=== PATIENT | male | born 1955 | race Caucasian/White ===

== ENCOUNTER → 2018-02-04 | Outpatient (CLI) | payer OTHER ==
[~2018-02-04] MED LIST: ASPI81 PO; BOSW5TAB PO; CELE200 PO; CENTCHW4 CHEW; CHONDROITIN PO; ECASA81 PO; FAMO1TAB37 PO; HYDR-3580 PO; SAWPOW PO; SIMV20TA PO; TAB-TAB PO; VITA100T5 PO; ZOCO40TA PO
[2018-02-04 12:20] LABS: HEMATOCRIT 43.3 % (39.0-51.0); HEMOGLOBIN 14.7 GM/DL (13.0-17.0); MEAN CELL VOLUME 91.4 FL (80.0-100.0); MEAN PLATELET VOLUME 8.5 FL (7.0-11.0); PLATELET COUNT 232 TH/MM3 (150-450); RED BLOOD COUNT 4.74 MIL/MM3 (4.50-5.90); RED CELL DISTRIBUTION WIDTH 13.1 % (11.6-17.2); WHITE BLOOD COUNT 4.9 TH/MM3 (4.0-11.0)
[2018-02-04 12:29] LABS: PROTHROMBIN TIME - PATIENT 10.4 SEC (9.8-11.6)
[2018-02-04 12:30] LABS: BILIRUBIN, URINE NEG (NEG); BLOOD, URINE NEG (NEG); GLUCOSE,URINE NEG (NEG); KETONE, URINE NEG (NEG); MUCUS URINE FEW /lpf (OCC); NITRITE,URINE NEG (NEG); URINE COLOR YELLOW (YELLW/STRAW); URINE LEUKOCYTE ESTERASE NEG (NEG)
[2018-02-04 12:46] LABS: BICARBONATE 28.7 MEQ/L (21.0-32.0); CALCIUM 9.3 MG/DL (8.5-10.1); CREATININE 0.98 MG/DL (0.60-1.30)
--- NOTE | 2018-02-04 23:44 | EKG ---
Date Performed: 02/04/2018 Time Performed: 11:56:19 PTAGE: 62 years EKG: SINUS BRADYCARDIA MINIMAL ST DEPRESSION BORDERLINE ECG Compared to PREVIOUS TRACING , rate has decreased and non-specific ST changes DOCTOR: Fredy Aceves Interpretating Date/Time 02/04/2018 23:43:27
== END ==
LOC: CPRE 11:34
PROVIDERS: ATTEND Orthopaedic Surgery
DX: Z01.812 Encounter for preprocedural laboratory examination (principal); Z01.810 Encounter for preprocedural cardiovascular examination; M17.12 Unilateral primary osteoarthritis, left knee; M79.609 Pain in unspecified limb; R00.1 Bradycardia, unspecified
CPT/HCPCS: 36415; 80048; 81001; 85027; 85610; 85730; 93005

== ENCOUNTER 2018-02-15 05:19 | Inpatient (IN) | payer MEDICARE ==
[~2018-02-15] VITALS: Ht 188 cm; Wt 98.5 kg
[~2018-02-15 05:19] MED LIST changes: -ASPI81 PO; -CELE200 PO; -CHONDROITIN PO; -ECASA81 PO; -HYDR-3580 PO; -SAWPOW PO; -TAB-TAB PO; -VITA100T5 PO; -ZOCO40TA PO
[2018-02-15] MEDS ORDERED: ceFAZolin 2 GM PREMIX 50 ML IV SCH (05:45)
[2018-02-15] MEDS ORDERED: METOPROLOL TARTRATE 25 MG TAB PO PRN (05:45)
[2018-02-15] MEDS ORDERED: SODIUM CHLORID 0.9% 500 ML IV PRN (05:45)
[2018-02-15] MEDS ORDERED: POVIDONE IODINE 5% (ANTISEPSIS KIT) 4 APPLICATIONS EACH NARE PRN (05:45)
[2018-02-15] MEDS ORDERED: INSULIN HUMAN REGULAR 1,000 UNITS/10 ML VIAL SQ PRN (05:45)
[2018-02-15] MEDS ORDERED: LACTATED RINGER'S 1000 ML IV PRN (05:45)
[2018-02-15] MEDS ORDERED: CHLORHEXIDINE GLUCONATE 4% SOLN 120 ML BTL TOPICAL SCH (05:45)
[2018-02-15] MEDS ORDERED: CHLORHEXIDINE GLUCONATE 2 % 1 PACK (2 CLOTHS) TOPICAL PRN (05:45)
[2018-02-15 06:00] VITALS: PULSE 65
[2018-02-15] MEDS ORDERED: EXPAREL PERI-ARTICULAR INJECTION (TOTAL VOL. 100 ML) P-ARTICULR SCH ×2 (06:00)
[2018-02-15] MEDS ORDERED: TRANEXAMIC ACID INJ 985 MG in SODIUM CHLORIDE 0.9% INJ 100 ML IV SCH ×2 (06:00→09:00)
[2018-02-15] MEDS ORDERED: BUPIVACAINE HCL PF 0.5% 30 ML VIAL ONE (06:03)
[2018-02-15] MEDS ORDERED: MIDAZOLAM HCL 2 MG/2 ML VIAL ONE (06:04)
[2018-02-15] MEDS ORDERED: GENTAMICIN SULFATE 80 MG/2 ML VIAL ONE (06:05)
[2018-02-15] MEDS ORDERED: FAT EMULSION 20% INJ 0 ML ONE (06:07)
[2018-02-15] MEDS ORDERED: ECASA81 PO (06:58)
[2018-02-15] MEDS ORDERED: ACETAMINOPHEN/HYDROcodone 325 MG/7.5 MG TAB PO PRN ×2 (07:00)
[2018-02-15] MEDS ORDERED: MORPHINE SULFATE 4 MG/ML INJ IV PUSH PRN (07:00)
[2018-02-15] MEDS ORDERED: TRANEXAMIC ACID INJ 0 MG in SODIUM CHLORIDE 0.9% INJ 100 ML IV SCH (07:00)
[2018-02-15] MEDS ORDERED: ZOLPIDEM TARTRATE 5 MG TAB PO PRN (07:00)
[2018-02-15] MEDS ORDERED: Post-op Orders (for Pharmacy) XX ONE (07:00)
[2018-02-15] MEDS ORDERED: FAMOTIDINE 20 MG TAB PO PRN (07:00)
[2018-02-15] MEDS ORDERED: MAGNESIUM HYDROXIDE SUSP 30 ML CUP PO PRN (07:00)
[2018-02-15] MEDS ORDERED: ONDANSETRON HCL 4 MG/2 ML VIAL IVP PRN (07:00)
[2018-02-15] MEDS ORDERED: PROPOFOL 500 MG/50 ML INJ 50 ML ONE (07:55)
[2018-02-15] MEDS: ASPIRIN EC 81 MG TABEC PO SCH ×2 (09:00→19:00)
[2018-02-15] MEDS ORDERED: NON-FORMULARY DRUG (Boswellia-Glucosamine-Vitamin (Osteo Bi-Flex One A Day) 1 TAB) PO SCH (09:00)
[2018-02-15] MEDS: MULTIVITAMINS/MINERALS THERAPEUTIC TAB PO SCH (09:00)
--- NOTE | 2018-02-15 09:30 | PD.OP ---
Operative Report Date of Surgery: February 15, 2018 Preoperative Diagnosis: (1) Primary osteoarthritis of left knee Postoperative Diagnosis: (1) Primary osteoarthritis of left knee Procedure: Left total knee arthroplasty using Maryse Triathlon prosthesis (uncemented). Anesthesia: Spinal with supplemental adductor canal block and local with Exparel Surgeon: Kaleb Leiva MD Pipeline Systems Operator(s): VANDANA De La Torre Operation and Findings: Indications and Findings: This 63-year-old man has had long-standing arthritis in his left knee which has been nonresponsive to conservative measures as detailed in the history and physical examination. He has been treated with nonsteroidal anti-inflammatory agents, bracing, ambulatory aids, exercises and analgesics. He has continued to have difficulty walking with limited weightbearing due to pain. He has pain with stairs and difficulty with walking. Physical findings showed degenerative varum with medial laxity, crepitation on motion and palpable osteophytes. X-rays show loss of articular cartilage [id number] in the medial compartment with tricompartmental osteophytes and medial eburnation. Operative findings: There is significant osteoarthritis particularly in the medial compartment with loss of articular cartilage to bone on bone. There are changes in the patellofemoral and lateral compartments as well. There were tricompartmental osteophytes. The prosthesis used was a [place] Triathlon prosthesis. The femur was a size 6, uncemented, cruciate retaining. The tibial baseplate was a size 7 Tritanium is with a 9 mm, cruciate retaining, X3 polyethylene spacer. The patella was a size 40 mm asymmetric Tritanium backed. The patient was brought to the clean-air operating suite. A spinal anesthetic was administered as well as a regional anesthetic by adductor canal block. The position was supine with a small bolster under the hip on the operative side. A pneumatic tourniquet was applied to the upper thigh. The lower extremity was then prepped with alcohol, Hibiclens and ChloraPrep and draped in the usual manner with the knee draped free. An appropriate timeout procedure was carried out. An incision was made from about 3 fingerbreadths above the superior medial pole of patella down the tibial tubercle on the medial side. The incision was deepened through the subcutaneous tissue to the retinacular structures which were exposed medially and laterally. A medial retinacular incision was then made from the superior middle pole of patella down the tibial tubercle and up into the quadriceps tendon splitting it longitudinally and the medial one third. The patella was reflected. The infrapatellar fat pad was debulked. A soft tissue mass measuring approximately 1 cm in diameter by 2 cm in length appearing to be possibly some hemorrhagic synovium but relatively unusual appearance was excised from the area of the anterior intercondylar notch. The anterior cruciate ligament was excised. Medial and lateral meniscectomies were initiated. Fenestrations were made in the distal femur and proximal tibia for intramedullary referencing guides. The distal femoral cutting guide and jig were then assembled for a 5, 8 mm cut. When this was fit position and placed cutting block was stabilized with pins. The jig was removed. The distal femoral cut was then completed with the oscillating saw. The sizing guide was then positioned in place along Whitesides line and the epicondylar axis and stabilized with pins. The femoral size was then determined as noted above. The 4-in-1 cutting block was then positioned in place. Anterior and posterior cuts were made followed by posterior and anterior chamfer cuts taking care to prevent injury to ligamentous structures. Osteophytes were then trimmed from the distal femur. A bone plug was then placed into the fenestration of the distal femur. The proximal tibia was then exposed. The medial and lateral meniscectomies were completed. The proximal tibial cutting guide was then positioned in place and stabilized with a pin for rotation. The depth of cut was then verified with a stylus off the lateral side. The cutting block was stabilized with pins. The jig was removed. The depth of cut was then verified and adjusted appropriately with the use of the spacer block. The proximal tibial cut was then made with the oscillating saw taking care to prevent injury to neurovascular and ligamentous structures. Proximal tibial bone was removed. Local anesthetic was administered with Exparel in the posterior capsule. The tibial baseplate trial was then positioned in place. After verifying the appropriate size, the base plate trial was positioned in place along with its spacer. The femoral component was then impacted into place. The alignment was checked. The tibial baseplate was then pinned in place on the tibia. Attention was directed to the patella. The patella drill guide was positioned in place for the appropriate sized patella. Patellar drilling was then carried out. The trial patella was positioned in place. The exposed lateral facet of patella was taken down. The knee was taken through a range of motion which was easily 0 extension to 145 of flexion. The patella trial was removed. The femoral drill holes were made. The femoral trials were removed. The tibial spacer was removed. A bone plug was placed into the proximal tibia. The tibial punch was impacted through the proximal tibial punch guide. This was all removed followed by placement of the tibial drill guide. The tibial drill holes were then made. The guide was removed. The cut ends of bone were then cleaned with pulse lavage. The tibial baseplate was then impacted into place and seated appropriately. The spacer was inserted. The the femoral component was then impacted into place and seated appropriately. The patella component was then seated with the patellar vice and tightened appropriately. The knee was taken through a range of motion which was comparable to the previous range of motion with excellent stability in flexion and extension and appropriate patellofemoral tracking. The remainder of the Exparel was then injected throughout the knee as a local anesthetic. Drains were brought out the superior lateral aspect of the suprapatellar pouch. Wound closure then commenced using 0 Vicryl interrupted [id number] sutures for the capsular and fascial structures, 2-0 Vicryl interrupted simple sutures with buried knots for the subcutaneous tissues and 4- 0 Monocryl, continuous subcuticular closure for the skin. The wound was then dressed with Dermabond Prineo followed by Optifoam silver impregnated dressing. Sterile soft roll with a cooling pad and Akhil bandage from the base of the toes to mid thigh were then applied. Patient was then transferred from the operating room to the recovery room in satisfactory condition having tolerated procedure well. Counts are correct. Specimens: Synovial irregularity, intercondylar notch. Estimated blood loss: 250 mL Elbert Leiva MD ([place]) February 15, 2018 09:30
--- NOTE | 2018-02-15 09:32 | HHI.FF ---
Face to Face Verification Diagnosis: (1) Status post total left knee replacement Physical Therapy Gait training Knee: Total knee, Protocol: Left, Gait training, Full weight bearing Left LE Weight Bearing: WB as tolerated Left LE Range of Motion: Active ROM (Active, active assisted, passive range of motion. Range of motion goal is 0 extension to 135 of flexion. Range of motion achieved in the operating room was 0 extension to 145 of flexion.) Nursing Nursing: Dressing changes Dressing Changes: Daily dressing change, Coverderm/Primapore Additional Instructions Do not remove Dermabond Prineo. I have seen patient Desean Paz on 02/15/18. My clinical findings support the need for the requested home health care services because: Ltd mobility - disease progression Limited ability to care for self High risk of falls I certify that my clinical findings support that this patient is homebound because: Post-op weakness Unsteady gait/balance Unsafe to leave home unassisted Elbert Leiva MD ([place]) February 15, 2018 09:32
[2018-02-15] MEDS ORDERED: HYDR-3580 PO (09:35)
[2018-02-15] MEDS ORDERED: DO NOT ADM ANY ANTICOAGULANT DRUGS PRN (09:52)
[2018-02-15] MEDS ORDERED: *morphine SULFATE 4 MG/ML PERIprocedure ONLY ONE ×2 (10:04→10:21)
[2018-02-15] MEDS: LACTATED RINGER'S 1000 ML INJ 1,000 ML IV SCH ×2 (10:05→16:12)
[2018-02-15] MEDS ORDERED: *HYDROmorphone PF 0.5 MG/0.5 ML PERIprocedure ONLY ONE ×3 (10:29→11:01)
[2018-02-15] MEDS: KETOROLAC TROMETHAMINE 30 MG/ML (IVP) VIAL IVP SCH ×3 (10:30→21:27)
--- NOTE | 2018-02-15 10:41 | RADRPT ---
EXAM DATE/TIME: 02/15/2018 11:07 [place] COMPARISON: No previous studies available for comparison. INDICATIONS : Post op left knee surgery. MEDICAL HISTORY : None. SURGICAL HISTORY : None. ENCOUNTER: Initial ACUITY: 1 day PAIN SCORE: 7/10 LOCATION: Left Knee. FINDINGS: Two view examination of the left knee demonstrates total arthroplasty. All 3 components are appropria tely positioned. No fracture. Suprapatellar ZOEY type drain is in place. CONCLUSION: Appropriate postoperative appearance of the left knee status post total arthroplasty. Jesse Mercado MD on February 15, 2018 at 10:39 Board Certified Radiologist. This report was verified electronically.
[2018-02-15] MEDS ORDERED: ONDANSETRON HCL 4 MG/2 ML VIAL IV ONE (12:00)
[2018-02-15] MEDS ORDERED: PROPOFOL 200 MG/20 ML AMP IV ONE (12:00)
[2018-02-15] MEDS ORDERED: LIDOCAINE HCL 1% PF 5 ML SYRINGE OTHER ONE (12:00)
[2018-02-15] MEDS ORDERED: LACTATED RINGER'S 1000 ML INJ 1,000 ML IV ONE (12:00)
[2018-02-15 15:43] VITALS: BP 115/75; PULSE 51; RESP 18; TEMP 98.3; O2SAT 96
--- NOTE | 2018-02-15 19:21 | PD.CONS ---
HPI Service [facility] Hospitalists Consult Requested By Dr. Leiva. Reason for Consult Medical management. Primary Care Physician Livier Vyas MD Diagnoses: History of Present Illness This is a 63-year-old male past medical history of hyperlipidemia and osteoarthritis who presents to [facility] for an elective right total knee arthroplasty. Dr. Leiva performed surgical procedure today. The patient otherwise denies any chest pain, shortness of breath, fevers, chills , nausea, vomiting or abdominal pain. Review of Systems As per HPI, other systems reviewed by me and negative Past Family Social History Allergies: Coded Allergies: No Known Allergies (Verified Allergy, Mild, 08/22/03) Past Medical History Hyperlipidemia Past Surgical History 1. Left knee arthroscopy 2. Adenoidectomy. Reported Medications Reported Meds & Active Scripts Active Hydrocodone-Acetamin 7.5-325 (Hydrocodone/Acetaminophen) 7.5 Mg-325 Mg Tablet 1 Tab PO Q4H PRN Reported Osteo Bi-Flex One A Day (Ssoedueam-Mjykdqgtcnk-Erahxsf) 1 Tab 1 Tab PO DAILY Centrum (Multiple Vitamins W/ Minerals) 1 Chew 1 Tab CHEW DAILY Simvastatin 20 Mg Tab 20 Mg PO HS Pepcid (Famotidine) 20 Mg Tab 10 Mg PO DAILY PRN Active Ordered Medications Current Medications Medications (Trade) Dose Ordered Sig/Norma Route Start Time Stop Time Status Last Admin (Hibiclens 4% Top Soln) 1 applic ONCE TOPICAL 02/15/18 05:45 02/18/18 05:44 02/15/18 06:00 Cefazolin Sodium/ Dextrose 50 ml @ 100 mls/hr EYEGLASS MAKER IV 02/15/18 05:45 02/18/18 05:44 02/15/18 07:00 Lactated Ringer's 1,000 ml @ 30 mls/hr Q24H PRN IV 02/15/18 05:45 02/18/18 05:44 02/15/18 06:00 Sodium Chloride 500 ml @ 30 mls/hr [id number] PRN IV 02/15/18 05:45 02/18/18 05:44 (Lopressor) 25 mg EYEGLASS MAKER PRN PO 02/15/18 05:45 02/18/18 05:44 (Betadine 5% Antisepsis Kit) 1 applic EYEGLASS MAKER PRN EACH NARE 02/15/18 05:45 02/18/18 05:44 02/15/18 06:21 (Chlorhexidine 2% Cloth) 3 pack EYEGLASS MAKER PRN TOPICAL 02/15/18 05:45 02/18/18 05:44 02/15/18 05:30 (NovoLIN R INJ) See Protocol Table ... EYEGLASS MAKER PRN SQ 02/15/18 05:45 02/18/18 05:44 Lactated Ringer's 1,000 ml @ 80 mls/hr [id number] IV 02/15/18 07:00 02/15/18 16:12 (Morphine Inj) 4 mg Q3H PRN IV PUSH 02/15/18 07:00 (Cass 7.5-325 Mg) 1 tab Q4H PRN PO 02/15/18 07:00 (Cass 7.5-325 Mg) 2 tab Q4H PRN PO 02/15/18 07:00 (Toradol Inj) 15 mg Q6H IVP 02/15/18 10:00 02/17/18 04:01 02/15/18 16:12 (Zofran Inj) 4 mg Q6H PRN IVP 02/15/18 07:00 02/15/18 16:11 (Colace) 100 mg BID PO 02/16/18 21:00 (Ambien) 5 mg HS PRN PO 02/15/18 07:00 (Milk Of Magnesia Liq) 30 ml DAILY PRN PO 02/15/18 07:00 (Ecotrin Ec) 81 mg BID PO 02/15/18 09:00 (Pepcid) 10 mg DAILY PRN PO 02/15/18 07:00 (Theragran M Tab) 1 tab DAILY PO 02/15/18 09:00 (Pravachol) 40 mg HS PO 02/15/18 21:00 ([facility] [place] [facility] [place]) ALL NURSING DEPARTME... UNSCH PRN .XX 02/15/18 09:52 02/16/18 09:51 Cefazolin Sodium 1000 mg/Sodium Chloride 100 ml @ 200 mls/hr Q6H IV 02/15/18 16:00 02/16/18 04:29 02/15/18 16:12 Family History Review with the patient and noncontributory to the current presentation. Social History Denies tobacco. Drinks alcohol moderately. Physical Exam Vital Signs Vital Signs Date Time Temp Pulse Resp B/P (MAP) Pulse Ox O2 Delivery O2 Flow Rate FiO2 02/15/18 15:43 98.3 51 18 115/75 (88) 96 02/15/18 14:30 Nasal Cannula 2.00 02/15/18 14:15 54 14 108/74 (85) 97 Room Air 02/15/18 13:00 49 14 110/74 (86) 97 Room Air 02/15/18 12:00 50 14 117/70 (86) 98 Room Air 02/15/18 11:00 51 14 125/80 (95) 99 Room Air 02/15/18 10:45 54 14 118/77 (91) 97 Room Air 02/15/18 10:30 52 14 119/84 (96) 98 Room Air 02/15/18 10:15 56 14 113/76 (88) 96 Room Air 02/15/18 09:58 97.9 62 14 104/62 (76) 98 Room Air 02/15/18 06:00 65 02/15/18 06:00 98 Nasal Cannula 2 02/15/18 05:59 98.3 65 18 133/81 (98) 98 Physical Exam GENERAL: This is a well-nourished, well-developed patient, in no apparent distress. SKIN: No rashes, ecchymoses or lesions. Cool and dry. HEAD: Atraumatic. Normocephalic. No temporal or scalp tenderness. EYES: Pupils equal round and reactive. Extraocular motions intact. No scleral icterus. No injection or drainage. ENT: Nose without bleeding, purulent drainage or septal hematoma. Throat without erythema, tonsillar hypertrophy or exudate. Uvula midline. Airway patent. NECK: Trachea midline. No JVD or lymphadenopathy. Supple, nontender, no meningeal signs. CARDIOVASCULAR: Regular rate and rhythm without murmurs, gallops, or rubs. RESPIRATORY: Clear to auscultation. Breath sounds equal bilaterally. No wheezes , rales, or rhonchi. GASTROINTESTINAL: Abdomen soft, non-tender, nondistended. No hepato-splenomegaly , or palpable masses. No guarding. MUSCULOSKELETAL: Extremities without clubbing, cyanosis, or edema. No joint tenderness, effusion, or edema noted. No calf tenderness. Negative Homans sign bilaterally. NEUROLOGICAL: Awake and alert. Cranial nerves II through XII intact. Motor and sensory grossly within normal limits. Five out of 5 muscle strength in all muscle groups. Normal speech. Imaging Current Medications Medications (Trade) Dose Ordered Sig/Norma Route Start Time Stop Time Status Last Admin (Hibiclens 4% Top Soln) 1 applic ONCE TOPICAL 02/15/18 05:45 02/18/18 05:44 02/15/18 06:00 Cefazolin Sodium/ Dextrose 50 ml @ 100 mls/hr EYEGLASS MAKER IV 02/15/18 05:45 02/18/18 05:44 02/15/18 07:00 Lactated Ringer's 1,000 ml @ 30 mls/hr Q24H PRN IV 02/15/18 05:45 02/18/18 05:44 02/15/18 06:00 Sodium Chloride 500 ml @ 30 mls/hr [id number] PRN IV 02/15/18 05:45 02/18/18 05:44 (Lopressor) 25 mg EYEGLASS MAKER PRN PO 02/15/18 05:45 02/18/18 05:44 (Betadine 5% Antisepsis Kit) 1 applic EYEGLASS MAKER PRN EACH NARE 02/15/18 05:45 02/18/18 05:44 02/15/18 06:21 (Chlorhexidine 2% Cloth) 3 pack EYEGLASS MAKER PRN TOPICAL 02/15/18 05:45 02/18/18 05:44 02/15/18 05:30 (NovoLIN R INJ) See Protocol Table ... EYEGLASS MAKER PRN SQ 02/15/18 05:45 02/18/18 05:44 Lactated Ringer's 1,000 ml @ 80 mls/hr [id number] IV 02/15/18 07:00 02/15/18 16:12 (Morphine Inj) 4 mg Q3H PRN IV PUSH 02/15/18 07:00 (Cass 7.5-325 Mg) 1 tab Q4H PRN PO 02/15/18 07:00 (Cass 7.5-325 Mg) 2 tab Q4H PRN PO 02/15/18 07:00 (Toradol Inj) 15 mg Q6H IVP 02/15/18 10:00 02/17/18 04:01 02/15/18 16:12 (Zofran Inj) 4 mg Q6H PRN IVP 02/15/18 07:00 02/15/18 16:11 (Colace) 100 mg BID PO 02/16/18 21:00 (Ambien) 5 mg HS PRN PO 02/15/18 07:00 (Milk Of Magnesia Liq) 30 ml DAILY PRN PO 02/15/18 07:00 (Ecotrin Ec) 81 mg BID PO 02/15/18 09:00 (Pepcid) 10 mg DAILY PRN PO 02/15/18 07:00 (Theragran M Tab) 1 tab DAILY PO 02/15/18 09:00 (Pravachol) 40 mg HS PO 02/15/18 21:00 ([facility] [place] [facility] [place]) ALL NURSING DEPARTME... UNSCH PRN .XX 02/15/18 09:52 02/16/18 09:51 Cefazolin Sodium 1000 mg/Sodium Chloride 100 ml @ 200 mls/hr Q6H IV 02/15/18 16:00 02/16/18 04:29 02/15/18 16:12 Assessment and Plan Problem List: (1) Primary osteoarthritis of left knee ICD Code: M17.12 - Unilateral primary osteoarthritis, left knee Status: Resolved (2) Status post total left knee replacement ICD Code: Z96.652 - Presence of left artificial knee joint (3) HLD (hyperlipidemia) ICD Code: E78.5 - Hyperlipidemia, unspecified Assessment and Plan The patient status post left total knee arthroplasty. Admit to the medical/surgical floor Monitor vital signs Pain control as per orthopedic surgery -patient currently on Cass and morphine sulfate as needed for breakthrough pain. Zofran as needed for nausea. Bowel regimen to prevent constipation given the use of opiates. Continue statin for hyperlipidemia DVT prophylaxis: As per orthopedic surgery discretion. Chemoprophylaxis should be started as soon as the result bleeding decreases. Code Status Full code Discussed Condition With Patient Kiel Ca MD February 15, 2018 19:21
[2018-02-15 20:00] VITALS: BP 124/70; PULSE 59; RESP 17; TEMP 97.9; O2SAT 97
[2018-02-15] MEDS ORDERED: PRAVASTATIN SOD 40 MG TAB PO SCH (21:00)
[2018-02-16 00:01] VITALS: BP 124/66; PULSE 82; RESP 18; TEMP 98.7; O2SAT 96
[2018-02-16 04:00] VITALS: BP 110/66; PULSE 71; RESP 18; TEMP 99; O2SAT 98
[2018-02-16] MEDS: KETOROLAC TROMETHAMINE 30 MG/ML (IVP) VIAL IVP SCH ×2 (04:31→08:11)
--- NOTE | 2018-02-16 06:59 | PD.ORT.PN ---
Subjective Post Op Day #: 1 Subjective Remarks He is doing well. He has minimal complaints related to the knee at this time. His ambulation was limited by nausea postoperatively. He no longer has some nausea. He is anxious to get started on therapy and get home. Range of Motion -8 of extension to 103 of flexion. Distance Walked 3 feet from bed to chair with PT. Objective Vitals Vital Signs Date Time Temp Pulse Resp B/P (MAP) Pulse Ox O2 Delivery O2 Flow Rate FiO2 02/16/18 04:00 99.0 71 18 110/66 (81) 98 02/16/18 00:01 98.7 82 18 124/66 (85) 96 02/15/18 21:30 Room Air 02/15/18 20:00 97.9 59 17 124/70 (88) 97 02/15/18 15:43 98.3 51 18 115/75 (88) 96 02/15/18 14:30 Nasal Cannula 2.00 02/15/18 14:15 54 14 108/74 (85) 97 Room Air 02/15/18 13:00 49 14 110/74 (86) 97 Room Air 02/15/18 12:00 50 14 117/70 (86) 98 Room Air 02/15/18 11:00 51 14 125/80 (95) 99 Room Air 02/15/18 10:45 54 14 118/77 (91) 97 Room Air 02/15/18 10:30 52 14 119/84 (96) 98 Room Air 02/15/18 10:15 56 14 113/76 (88) 96 Room Air 02/15/18 09:58 97.9 62 14 104/62 (76) 98 Room Air I/O 02/15/18 02/15/18 02/15/18 02/16/18 02/16/18 02/16/18 07:00 15:00 23:00 07:00 15:00 23:00 Intake Total 1529.85 ml 420 ml Output Total 550 ml 295 ml 1025 ml Balance 979.85 ml -295 ml -605 ml Intake Oral 120 ml 420 ml IV Total 1409.85 ml Output Urine Total 300 ml 725 ml Drainage Total 295 ml 300 ml Estimated Blood Loss 250 ml # Bowel Movements 0 Imaging Last 72 hours Impressions Knee X-Ray 02/15/18 0654 Signed Impressions: Service Date/Time: Thursday, February 15, 2018 11:07 - CONCLUSION: Appropriate postoperative appearance of the left knee status post total arthroplasty. Jesse Mercado MD Objective Remarks He is resting comfortably, supine in bed, in the CPM. The neurovascular status is intact. His dressing is dry and intact. Assessment & Plan Ortho Post Op Day #: 1 Problem List: (1) Primary osteoarthritis of left knee ICD Codes: M17.12 - Unilateral primary osteoarthritis, left knee Status: Resolved (2) Status post total left knee replacement ICD Codes: Z96.652 - Presence of left artificial knee joint Plan: Continue postop care and PT. Assessment and Plan Condition: Good. Orthopedically stable. DVT prophylaxis: TEDs, aspirin, sequentials. Discharge plans: Home with home health care. An appointment was scheduled through the office. Prescriptions: [place] 7.5/325 Elbert Leiva MD ([place]) February 16, 2018 06:59
--- NOTE | 2018-02-16 07:32 | HHI.DS ---
Discharge Summary Admission Date February 15, 2018 at 05:19 Discharge Date: February 16, 2018 Admitting Diagnosis Primary osteoarthritis, left knee Diagnosis: (1) Primary osteoarthritis of left knee Diagnosis: Principal ICD Codes: M17.12 - Unilateral primary osteoarthritis, left knee Status: Resolved (2) Status post total left knee replacement Diagnosis: Principal ICD Codes: Z96.652 - Presence of left artificial knee joint Procedures Left total knee arthroplasty using Maryse Triathlon prosthesis (uncemented) on 02/15/2018 Brief History This is a 63 year old male patient has had progressively worsening left knee pain secondary to osteoarthritis. When he is active, he has significant pain. He has less pain if he does not do anything. He has not responded to conservative measures including nonsteroidal anti-inflammatory agents, analgesics, exercise and the like. Physical findings showed laxity in the medial compartment with tenderness and palpable osteophytes. X-ray showed loss of articular cartilage to bone on bone in the medial compartment with osteophytes and eburnation. Imaging Last 72 hours Impressions Knee X-Ray 02/15/18 0654 Signed Impressions: Service Date/Time: Thursday, February 15, 2018 11:07 - CONCLUSION: Appropriate postoperative appearance of the left knee status post total arthroplasty. Jesse Mercado MD PE at Discharge He is resting comfortably, supine in bed, in the CPM. The neurovascular status is intact. His dressing is dry and intact. Hospital Course The patient was admitted as noted above. The above noted operative procedure was carried out that day. Preoperatively prophylactic antibiotics were administered Ancef according to protocol. These were continued postoperatively. The patient also received tranexamic acid to help with hemostasis according to protocol. In the postanesthesia care unit a continuous passive motion device was initiated. Also initiated were mechanical methods of DVT prophylaxis in the form of PORTIA stockings and sequentials. Physical therapy was initiated on the day of surgery. On postoperative day #1 physical therapy continued. The use of the continuous passive motion device continued. DVT prophylaxis with aspirin 81 mg twice daily was initiated at this time. The patient continued physical therapy throughout the hospitalization. The distance walked and range of motion improved throughout the hospitalization. The patient was discharged on postoperative day 1 with the disposition being to home with home health care. An appointment for follow-up was made prior to admission. Pt Condition on Discharge: Good Discharge Disposition: Disch w/ Home Health Serv Discharge Instructions Diet Instructions: As Tolerated, No Restrictions Activities You Can Perform: Full Weight Bearing, Shower Only-No Bath Activities to Avoid: Lifting/Bending, Strenuous Activity, Bathing, Driving Follow up Referrals: Orthopedics with Elbert Leiva MD ([place]) New Medications: Aspirin DR (Aspirin DR) 81 Mg Tabdr 81 MG PO BID for Prevent Blood Clot for 30 Days, #60 TAB Hydrocodone/Acetaminophen (Hydrocodone-Acetamin 7.5-325) 7.5 Mg-325 Mg Tablet 1 TAB PO Q4H PRN for PAIN SCALE 1 TO 10, #30 TAB Continued Medications: Osrkndteu-Zyaqrulrkze-Riwaixq (Osteo Bi-Flex One A Day) 1 Tab 1 TAB PO DAILY, TAB Famotidine (Pepcid) 20 Mg Tab 10 MG PO DAILY PRN for gerd, #60 TAB 0 Refills Multiple Vitamins W/ Minerals (Centrum) 1 Chew 1 TAB CHEW DAILY for Nutritional Supplement, TAB 0 Refills Simvastatin (Simvastatin) 20 Mg Tab 20 MG PO HS for Cholesterol Management, #30 TAB 0 Refills Elbert Leiva MD ([place]) February 16, 2018 07:32
[2018-02-16 07:47] VITALS: BP 123/65; PULSE 71; RESP 18; TEMP 98.2; O2SAT 96
[2018-02-16 07:57] LABS: HEMATOCRIT 33.4 % (39.0-51.0); HEMOGLOBIN 11.5 GM/DL (13.0-17.0)
[2018-02-16] MEDS: LACTATED RINGER'S 1000 ML INJ 1,000 ML IV SCH (08:00)
[2018-02-16] MEDS: ASPIRIN EC 81 MG TABEC PO SCH (08:10)
[2018-02-16] MEDS: MULTIVITAMINS/MINERALS THERAPEUTIC TAB PO SCH (08:10)
[2018-02-16 11:41] VITALS: BP 121/61; PULSE 78; RESP 16; TEMP 97.8; O2SAT 97
[2018-02-16] MEDS ORDERED: DOCUSATE SODIUM 100 MG CAP PO SCH (21:00)
== END 2018-02-16 14:25 | disposition home health service (06) | DRG 470 ==
LOC: HSDI 05:19 → N06B 14:29
PROVIDERS: ADMIT Orthopaedic Surgery; ATTEND Orthopaedic Surgery
PROC: 3E0T3BZ Introduction of Anesthetic Agent into Peripheral Nerves and Plexi, Percutaneous Approach (ICD-10-PCS; 2018-02-15)
PROC: 0SRD0JA Replacement of Left Knee Joint with Synthetic Substitute, Uncemented, Open Approach (ICD-10-PCS; principal; 2018-02-15 06:48)
DX: M17.12 Unilateral primary osteoarthritis, left knee (principal); E78.5 Hyperlipidemia, unspecified; R11.0 Nausea
CPT/HCPCS: 73560; 85014; 85018; 86850; 86900; 86901; 88305; 88307; 94150; C1776; C9290; J0690; J1170; J1580; J1885; J2250; J2270; J2405; J7120